=== PATIENT | female | born 1970 | race African-American/Black ===

== ENCOUNTER 2022-08-09 21:33 | Emergency (ER) | payer SELFPAY ==
[~2022-08-09] VITALS: Ht 170.2 cm; Wt 67.1 kg
[2022-08-09] MEDS ORDERED: SODIUM CHLORIDE 0.9% 1000ML 1,000 ML IV ONE (21:45)
[2022-08-09 21:56] LABS: BASOPHILS % 0.2 % (0.0-1.0); EOSINOPHILS % 0.3 % (0.0-6.0); HEMATOCRIT 36.9 % (34.2-44.1); HEMOGLOBIN 11.6 g/dL (12.0-16.0); LYMPHOCYTES # (AUTO) 3.4 (1.0-3.2); LYMPHOCYTES % 25.6 % (18.0-39.1); MEAN CORPUSCULAR HEMOGLOBIN 35.2 pg (28-32); MEAN CORPUSCULAR HGB CONC 31.4 g/dL (31-35); MEAN CORPUSCULAR VOLUME 111.8 fL (81-99); MONOCYTES # (AUTO) 0.8 (0.2-0.8); MONOCYTES % 6.3 % (4.4-11.3); NEUTROPHILS # (AUTO) 8.9 (2.1-6.9); NEUTROPHILS % 67.3 % (38.7-80.0); PLATELET COUNT 286 x10e3/uL (140-360); RED CELL DISTRIBUTION WIDTH 16.4 % (11.7-14.4)
[2022-08-09 22:22] LABS: ANION GAP 14.3 mmol/L (8-16); CALCIUM 9.2 mg/dL (8.4-10.2); CREATININE, SERUM 0.76 mg/dL (0.57-1.11); POTASSIUM 3.3 mmol/L (3.5-5.1)
[2022-08-09 23:39] VITALS: BP 144/79
[2022-08-10] MEDS ORDERED: ACETAMINOPHEN/CODEINE 300MG - 30MG TAB PO ONE
== END 2022-08-10 | disposition home or self-care (01) ==
LOC: ER 21:47
DX: E11.65 Type 2 diabetes mellitus with hyperglycemia (principal); I10 Essential (primary) hypertension; K76.9 Liver disease, unspecified
CPT/HCPCS: 36415; 80048; 82948; 85025; 99284; J7030

== ENCOUNTER 2022-08-16 21:14 | Emergency (ER) | payer SELFPAY ==
[~2022-08-16] VITALS: Ht 170.2 cm; Wt 67.1 kg
== END 2022-08-16 22:10 | disposition home or self-care (01) ==
LOC: ER 21:37
DX: K74.60 Unspecified cirrhosis of liver (principal); I10 Essential (primary) hypertension; E11.9 Type 2 diabetes mellitus without complications; B19.10 Unspecified viral hepatitis B without hepatic coma
CPT/HCPCS: 99282